=== PATIENT | female | born 1990 | race Hispanic/Latino ===

== ENCOUNTER 2020-03-21 22:19 | Emergency (ER) | payer SELFPAY ==
[2020-03-21] MEDS ORDERED: Ondansetron PF 4 MG/2 ML Vial ONE (22:35)
[2020-03-21] MEDS ORDERED: Acetaminophen 500 MG TAB ONE (22:48)
[2020-03-21 22:51] LABS: #Basophils 0.1 thou/uL (0.0-0.2); #Eosinphils 0.1 thou/uL (0.0-0.7); #Lymphocytes 2.8 thou/uL (1.20-3.40); #Monocytes 0.4 thou/uL (0.11-0.59); #Neutrophils 5.5 thou/uL (1.40-6.50); %Basophils 1.3 % (0.0-1.0); %Eosinophils 0.9 % (0.0-10.0); %Lymphocytes 31.5 % (21.0-51.0); %Monocytes 4.6 % (0.0-10.0); %Neutrophils 61.8 % (42.0-75.0); Hemoglobin 11.9 g/dL (12.0-16.0); Mean Corpuscular HGB CONC 33.9 g/dL (32.0-36.0); Mean Corpuscular Volume 88.7 fL (78.0-98.0); Mean Platelet Volume 7.3 fL (7.4-10.4); Platelet Count 329 thou/uL (130-400); RBC Distribution Width 12.5 % (11.5-14.5); Red Blood Cell (RBC) Count 3.95 mill/uL (4.20-5.40)
[2020-03-21 23:18] LABS: ALT (SGPT) Less than 7 U/L (8-55); AST (SGOT) 9 U/L (5-34); Albumin 3.8 g/dL (3.5-5.0); Alkaline Phosphatase 58 U/L (40-110); Anion Gap 15 mmol/L (10-20); BUN (Urea Nitrogen) 11 mg/dL (7.0-18.7); Bilirubin, Total 0.2 mg/dL (0.2-1.2); Calc. Creatinine Clearance 0 mL/min (70-130); Calcium 8.5 mg/dL (7.8-10.44); Carbon Dioxide 20 mmol/L (22-29); Chloride 106 mmol/L (98-107); Estimated GFR-MDRD Greater than 90; Globulin 3.3 g/dL (2.4-3.5); Glucose 86 mg/dL (70-105); Potassium 3.6 mmol/L (3.5-5.1); Protein, Total 7.1 g/dL (6.0-8.3); Sodium 137 mmol/L (136-145)
[2020-03-22 00:36] LABS: Bilirubin Negative (Negative); Blood, Urine Negative (Negative); Clarity Clear (Clear); Glucose, Urine (Dipstick) Normal (Negative); Ketone, Urine 20 mg/dL (Negative); Leukocyte Negative Leu/uL (Negative); Nitrite Negative (Negative); Protein, Urine (Dipstick) 10 mg/dL (Neg-Trace); Specific Gravity, Urine 1.024 (1.002-1.036); Urobilinogen Normal mg/dL (Less than 2); pH, Urine 6.5 (5.0-9.0)
[2020-03-22 00:37] LABS: Pregnancy Test - Urine (BHCG) POSITIVE (Negative); Pregu Control Background? CLEAR/WHITE (CLR/WHITE); Pregu Control Bar Appear? YES (CONTROL BAR); Specific Gravity 1.024 (1.002-1.036)
[2020-03-22 00:45] LABS: Amphetamine Not Detected (NotDetected); Barbiturates Screen Not Detected (NotDetected); Benzodiazepine Screen Not Detected (NotDetected); Cocaine Metabolite Screen Not Detected (NotDetected); Medtox Control Line Valid? VALID (VALID); Medtox Reader # READER 4; Methadone Not Detected (NotDetected); Methamphetamine Not Detected (NotDetected); Opiate Screen Not Detected (NotDetected); Oxycodone Screen Not Detected (NotDetected); Phencyclidine (PCP) Not Detected (NotDetected); THC/Cannabinoid Screen Not Detected (NotDetected); Tricyclic Screen Not Detected (NotDetected)
[2020-03-22] MEDS ORDERED: Ondansetron PF 4 MG/2 ML Vial ONE (01:26)
[2020-03-22] MEDS ORDERED: Morphine 4 MG/ML VIAL ONE (01:26)
--- NOTE | 2020-03-25 13:08 | EKG ---
Test Reason : Blood Pressure : / mmHG Vent. Rate : 078 BPM Atrial Rate : 078 BPM P-R Int : 158 ms QRS Dur : 088 ms QT Int : 382 ms P-R-T Axes : 045 041 031 degrees QTc Int : 435 ms Normal sinus rhythm Normal ECG Confirmed by WILLEM AMAYA ([id number]), newspaper copy editor ОЛЕГ TAYLOR ([id number]) on 03/25/2020 1:08:40 PM Referred By: Confirmed By:WILLEM AMAYA
== END 2020-03-22 01:01 | disposition home or self-care (01) ==
LOC: ERS 22:19
DX: O99.351 Diseases of the nervous system complicating pregnancy, first trimester (principal); G40.409 Other generalized epilepsy and epileptic syndromes, not intractable, without status epilepticus
CPT/HCPCS: 36415; 80053; 80306; 81003; 81025; 84146; 85025; 93005; 96374; J2270; J2405

== ENCOUNTER 2020-08-07 00:50 | Day surgery (SDC) | payer SELFPAY ==
[2020-08-07 01:24] VITALS: BP 99/66; TEMP 97.8; BMI 22.4
--- NOTE | 2020-08-07 01:55 | PDOC.FPROB ---
FMR OB H&P: HPI - History of Present Illness Chief Complaint: Ctx Indentification: 30yo at 37.4wks History of Present Illness: This is a 30 at 37.4wga who presented for ctxns that started at 0030 on 08/07/2020. Admits poor PO water intake. She denies LOF, VB, recent intercourse. Endorses good movement. Cervical check on arrival was /-3, posterior. FHT 130s with good accels. Primary Care Physician: YUDY Sinclair MD FMR OB H&P: Current - Care : 6 Para: 5 Gestational age: 38 Due date: 08/24/2020 Dating Criteria: 7wk sono Course/Complications: Denies. None per chart review. - OB Labs Blood type: A RH: positive Antibody Screen: negative HIV: negative RPR: negative HepBsAg: negative Rubella: immune Quad screen: unknown Urine drug screen: not done Gonorrhea: negative Chlamydia: negative Pap Smear: NILM 04/25/2020 1 hour gtt: 2hr GTT: neg GBS: unknown H&H: 10.5/31.5 Platelets: 392 - Anatomy Survey Anatomy survey: Nml FMR OB H&P: History - Past Medical History PMH: Epilepsy. Off medications since high school. Last seizure 03/2020 - OB History OB History: 4 vaginal deliveries without Ob, delivery, PP complications 1 c/section in 05/2019 for bradycardia with NICU stay. No complications with anesthesia/recovery. - BROWNFIELD PROGRAM COORDINATOR History BROWNFIELD PROGRAM COORDINATOR History: Last pap 03/2020 showed NILM Denies hx of STDs Wants risk-reducing BSO. Applied 1mo ago, status unknown. If approved, would like rLTCS. If not, would like TOLAC. - Surgical History Sx History: C/section in 05/2019. No issues with anesthesia personally or in immediate family - Social History Social History: Lives with her mom. Denies t/a/d. When asked if FOB will be involved she said "I don't know". - Family History Family History: Noncontributory FMR OB H&P: Medications - Current Home Medications: Medication Instructions Recorded Confirmed Type Pnv No.95/Ferrous Fum/Folic AC 1 tab PO DAILY 08/07/20 08/07/20 History [ [place]] Allergies/Adverse Reactions: Allergies Allergy/AdvReac Type Severity Reaction Status Date / Time No Known Allergies Allergy Verified 08/07/20 01:24 FMR OB H&P: ROS - Review of Systems Eyes: denies: vision changes, double vision, scotomas, floaters ENT: denies: nasal congestion, sore throat Cardiovascular: denies: chest pain Respiratory: denies: cough, shortness of breath Gastrointestinal: denies: abdominal pain, vomiting, diarrhea, bright red blood, dark black tarry stools Genitourinary (Female): reports: contractions. denies: dysuria, vaginal bleeding Musculoskeletal: denies: swelling Neurologic: denies: seizures Integumentary: denies: itching, rash Endocrine: denies: polydipsia FMR OB H&P: Vital Signs - Maternal Vital signs: Vital Signs - First Documented Temp Pulse Resp BP Pulse Ox 97.8 F 92 18 99/66 99 08/07/20 01:03 08/07/20 01:03 08/07/20 01:03 08/07/20 01:03 08/07/20 01:03 - Heart Tones Baseline: 140 Variability: moderate Acceleration: present Deceleration: absent [place] contractions every: 2-5min. Look like irritability FMR OB H&P: Physical Exam - Physical Exam General: NAD, awake, alert and oriented HEENT: EOMI, grossly normal vision, grossly normal hearing Neck: supple, FROM Chest: non-tender to palpation Heart: RRR, normal S1/S2, no murmurs/rubs/gallops General: CTAB, no respiratory distress, good air movement Abdomen: soft, gravid, non-tender, bowel sound present Musculoskeletal: FROM in all four extremities Neurological: no focal deficit Skin: no rash Lymphatic: no unusual bruising or bleeding Psychiatric: intact recent and remote memory, good judgement and insight, normal mood and affect - Pelvic Exam SVE: /-3 French score: 4 Membranes: Intact FMR OB H&P: A/P Disposition: This is a 30yo at 37.4wks presenting for ctxns. Term sIUP - RODRIGO: 08/24/2020 per 21 6/7wk sono Labor check - [place] shows ctxns q5min and irritability - FHT: 130s, multiple accels, no decels - Cervix /-3, posterior at 0134 - Plan to monitor and recheck in 2hrs. Hx of epilepsy - Not on medication - Last seizure 03/2020 Hx of c/section - May 2019, for bradycardia - Desire for risk-reducing BSO. If approved, desires rLTCS. If denied, desires TOLAC. Discussion: Date/Time: 08/07/20 961 This H&P was discussed with Dr. Noemí Jackson and Dr. Dayron Adorno who agree with the above documentation and plan. Addendum - Attending - Attending Attestation Date/Time: 08/07/20 8815 I personally evaluated the patient and discussed the management with Dr. Adams I agree with the History, Examination, Assessment and Plan documented above with any addition or exceptions noted below.
--- NOTE | 2020-08-07 03:35 | PDOC.OBLPN ---
FMR OB Labor PN: Subj - Interval History Hospital Day: 1 Chief Complaint: ctxns Indentification: 30yo at 37.4wga Interval History: Pt has been sleeping comfortably FMR OB Labor PN: Obj - Maternal Vital signs: BP: 99/66 HR: 80s - Procedures Procedures: N/A FMR OB Labor PN: Exam - Physical Exam General: NAD Deviation from normal: Sleeping, easily arousable HEENT: normocephalic and atraumatic, EOMI, grossly normal vision, grossly normal hearing Neck: supple, FROM, trachea midline Abdomen: soft, gravid Skin: no rash Lymphatic: no unusual bruising or bleeding Psychiatric: intact recent and remote memory, good judgement and insight, normal mood and affect - Pelvic Exam Vulva: appropriate galo stage, no lesions, no discharge, no blood Cervix: no masses SVE: 50/-3 French score: 4 Membranes: Intact FMR OB Labor PN: A/P Disposition: This is a 30yo at 37.4wks presenting for ctxns. Term sIUP - RODRIGO: 08/24/2020 per 21 6/7wk sono Labor check - [place] shows no ctxns - FHT: 145, multiple accels, no decels - Cervical checks * 50/-3, posterior at 0134 * 50/-3, posterior at 0330 - Will discharge since not in labor. Gave return precautions Hx of epilepsy - Not on medication - Last seizure 03/2020 Hx of c/section - May 2019, for bradycardia - Desire for risk-reducing BSO. If approved, desires rLTCS. If denied, desires TOLAC. Discussion: Date/Time: 08/07/20333 This H&P was discussed with Dr. Noemí Jackson and Dr. Dayron Adorno who agree with the above documentation and plan.
== END 2020-08-07 04:00 | disposition home or self-care (01) ==
LOC: L&D/OP 00:50
PROVIDERS: ATTEND Family Medicine
DX: O47.1 False labor at or after 37 completed weeks of gestation (principal); O99.353 Diseases of the nervous system complicating pregnancy, third trimester; G40.909 Epilepsy, unspecified, not intractable, without status epilepticus; O34.211 Maternal care for low transverse scar from previous cesarean delivery; Z3A.37 37 weeks gestation of pregnancy
CPT/HCPCS: 99283

== ENCOUNTER 2020-08-10 17:22 | Day surgery (SDC) | payer SELFPAY ==
[2020-08-10 18:04] VITALS: BP 119/82; TEMP 98.3; BMI 23.2
[2020-08-10] MEDS ORDERED: hydrALAZINE 20 MG/ML VIAL SLOW IVP PRN (18:23)
--- NOTE | 2020-08-10 19:03 | ULT ---
Biophysical profile: 08/10/2020 HISTORY: 30-year-old female undergoing assessment of biophysical profile with amniotic fluid index assessment FINDINGS: There is a single live intrauterine gestation demonstrating a vertex presentation. he art rate is 141 bpm. The placenta is located anteriorly with no evidence for previa or abruption. Amniotic fluid index is 11.2 cm. The physician pediatrician reports a 2 out of 2 score for tone, tavia athing, movement, and amniotic fluid. IMPRESSION: Normal 8 out of 8 biophysical profile score.
--- NOTE | 2020-08-10 19:35 | PDOC.LDHP ---
Labor and Delivery H&P Chief complaint: other (low fluid seen on U/S at [facility]) HPI: Patient is a 30 yo @ 38 weeks gestation who presents to L&D after being told at her [facility] appointment earlier today that she had low fluid levels on her ultrasound. She feels fine, denies any complaints. Has been feeling baby move. Denies any LOF, VB, VD, Contractions, Cramping. Current gestational age (weeks): 38 Due date: 08/24/20 Dating criteria: second trimester ultrasound (21.6 wk U/S) Grav: 6 Para: 5 ([id number]) OB History Details: 4 previous SVDs 1 previous LTCS Negative progenity screen Anemia of , currently on iron therapy Desires Risk-reducing salpingectomy after this current , consents signed Current complications: none Past Medical History: Hx of seizures, last one when teenage. Stopped medications at age 20 Current medications: pre-mathew vitamins, iron Previous surgical history: low tranverse CS (2018) Allergies/Adverse Reactions: Allergies Allergy/AdvReac Type Severity Reaction Status Date / Time No Known Allergies Allergy Verified 08/07/20 01:24 Social history: none - Physical Exam Vital signs reviewed and normal: yes General: NAD, resting Heart: RRR Lungs: CTAB Abdomen: NTTP Extremeties: no edema FHT: category 1, variability present [place] contractions every: not seen - OB Labs Blood type: A RH: positive Antibody Screen: negative HIV: negative RPR: negative HEPSAg: negative 3 hour GTT: 72/124/77 GBS: unknown Rubella: immune Additional Labs: Pap NILM in Apr 2020 - Assessment 30 yo at 38 wga presents from clinic with suspected low fluid: #Term -rule out Oligohydramnios: -BPP with SWATI ordered -follows with [facility] for care, has next appt in 1 week -desires rLTCS with RRS with this -place external monitoring Dispo: Will obtain U/S to assess status and fluid levels. ADDENDUM 08/10/2020 @ 1930 BPP is 8/8. SWATI 11.2 Cat 1 FHT Discussed plan with patient to send home at this time. She has [facility] appt scheduled in 1 week. Return precautions discussed. Above H&P was discussed with Laborist Dr. Cai who agrees with plan. DO Phyllis, PGY-2 Addendum - Attending - Attending Attestation Date/Time: 08/10/20 5674 I personally evaluated the patient and discussed the management with Dr. Shabazz I agree with the History, Examination, Assessment and Plan documented above with any addition or exceptions noted below. Pt has expressed understanding of the findings. Reassurance given. f/u 1wk as scheduled.
== END 2020-08-10 19:39 | disposition home or self-care (01) ==
LOC: L&D/OP 17:22
PROVIDERS: ATTEND Obstetrics & Gynecology
DX: O41.03X0 Oligohydramnios, third trimester, not applicable or unspecified (principal); O99.013 Anemia complicating pregnancy, third trimester; D64.9 Anemia, unspecified; O34.211 Maternal care for low transverse scar from previous cesarean delivery; Z3A.38 38 weeks gestation of pregnancy
CPT/HCPCS: 76819

== ENCOUNTER 2020-08-15 10:33 | Outpatient (CLI) | payer OTHER ==
[2020-08-16 17:21] LABS: SARS-CoV-2 PCR by NAA Not Detected (NotDetected)
== END 2020-08-15 10:34 | disposition home or self-care (01) ==
LOC: LABBT 10:33
PROVIDERS: ATTEND Family Medicine
DX: Z20.822 Contact with and (suspected) exposure to COVID-19 (principal)
CPT/HCPCS: 87635; U0003; U0005